=== PATIENT | male | born 1950 | race Caucasian/White ===

== ENCOUNTER → 2016-07-06 | Outpatient (CLI) | payer OTHER | LOC: US 09:04 | DX: I73.9 Peripheral vascular disease, unspecified (principal); I10 Essential (primary) hypertension; E78.5 Hyperlipidemia, unspecified; I74.3 Embolism and thrombosis of arteries of the lower extremities | CPT/HCPCS: 93925 ==

== ENCOUNTER → 2020-07-23 | Outpatient (CLI) | payer OTHER | LOC: HEART 5 06-23 07:49 | DX: I25.10 Atherosclerotic heart disease of native coronary artery without angina pectoris (principal); I51.89 Other ill-defined heart diseases | CPT/HCPCS: 78452; A9502; J2785 ==

== ENCOUNTER → 2020-10-21 | Outpatient (CLI) | payer MEDICARE ==
[~2020-10-21] MED LIST: ADULT LOW DOSE81 MG PO; BUDESONIDE-FO10.2 G1 INH; CLINDAMYCIN HC300 MG PO; ENTRESTO 24 MG1 EACH PO; FARXIGA10 MG PO; FLOMAX 0.4 MG0.4 MG PO; HYDROCODON-ACE1 EAC4 PO; LASIX40 MG PO; LEVOFLOXACIN500 MG PO; LIPITOR80 MG PO; METOPROLOL SUCC50 MG PO
[2020-10-21 13:00] LABS: HEMOGLOBIN 14.6 gm/dl (14.0-17.5); RED BLOOD COUNT 4.99 M/UL (4.20-5.50); WHITE BLOOD COUNT 7.1 K/UL (4.5-11.0)
[2020-10-21 13:30] LABS: BUN/CREATININE RATIO 13 (0-10)
== END ==
LOC: LAB 11:48
PROVIDERS: Internal Medicine Cardiovascular Disease
DX: I50.22 Chronic systolic (congestive) heart failure (principal); I45.4 Nonspecific intraventricular block; I44.7 Left bundle-branch block, unspecified; I25.10 Atherosclerotic heart disease of native coronary artery without angina pectoris
CPT/HCPCS: 36415; 71046; 80048; 85025

== ENCOUNTER 2020-10-23 07:28 | Outpatient (CLI) | payer MEDICARE ==
[~2020-10-23] VITALS: Ht 182.9 cm; Wt 90.7 kg
[2020-10-23] MEDS ORDERED: ENTRESTO 24 MG1 EACH PO (08:20)
[2020-10-23] MEDS ORDERED: FLOMAX 0.4 MG0.4 MG PO (08:21)
[2020-10-23] MEDS ORDERED: ADULT LOW DOSE81 MG PO (08:23)
[2020-10-23] MEDS ORDERED: FARXIGA10 MG PO (08:24)
[2020-10-23] MEDS ORDERED: BUDESONIDE-FO10.2 G1 INH (08:24)
[2020-10-23] MEDS ORDERED: LASIX40 MG PO (08:24)
[2020-10-23] MEDS ORDERED: LIPITOR80 MG PO (08:25)
[2020-10-23] MEDS ORDERED: METOPROLOL SUCC50 MG PO (08:25)
[2020-10-23] MEDS ORDERED: HYDROCODON-ACE1 EAC4 PO (11:22)
[2020-10-23] MEDS ORDERED: CLINDAMYCIN HC300 MG PO (11:22)
[2020-10-23] MEDS ORDERED: LEVOFLOXACIN500 MG PO (11:22)
== END 2020-10-24 11:12 | disposition home or self-care (01) ==
LOC: CATH 07:28 → MED SURG 4 14:23 → CATH 10-24 11:12
DX: I25.5 Ischemic cardiomyopathy (principal); I11.0 Hypertensive heart disease with heart failure; I50.22 Chronic systolic (congestive) heart failure; I44.7 Left bundle-branch block, unspecified; I25.10 Atherosclerotic heart disease of native coronary artery without angina pectoris; J44.9 Chronic obstructive pulmonary disease, unspecified; I73.9 Peripheral vascular disease, unspecified; N42.9 Disorder of prostate, unspecified; I25.2 Old myocardial infarction; Z95.5 Presence of coronary angioplasty implant and graft; F17.210 Nicotine dependence, cigarettes, uncomplicated; Z79.899 Other long term (current) drug therapy; Z79.82 Long term (current) use of aspirin
CPT/HCPCS: 33225; 33249; 71045; 93005; 93641; 94640; 94664; 94760; 99152; 99153; C1769; C1777; C1882; C1898; C1900; J1200; J1644; J2250; J3010; J3370; J7040; J7050; J7070; Q9965

== ENCOUNTER → 2020-11-09 | Outpatient (CLI) | payer MEDICARE | LOC: US 13:13 | DX: I73.9 Peripheral vascular disease, unspecified (principal); I77.1 Stricture of artery | CPT/HCPCS: 93922; 93925 ==

== ENCOUNTER → 2020-12-03 | Outpatient (CLI) | payer MEDICARE | LOC: CT 07:43 | DX: I73.9 Peripheral vascular disease, unspecified (principal); I71.9 Aortic aneurysm of unspecified site, without rupture; I35.0 Nonrheumatic aortic (valve) stenosis | CPT/HCPCS: 36415; 75635; 82565; 84520; Q9967 ==